=== PATIENT | male | born 1970 | race Caucasian/White ===

== ENCOUNTER 2024-04-30 07:05 | Day surgery (SDC) | payer OTHER ==
[~2024-04-30] VITALS: Ht 175.3 cm; Wt 97.3 kg
[~2024-04-30 07:05] MED LIST: ALEV220T22 PO; BUSP5TA PO; FLUO40CA PO; NS 250 ML IV ONE
[2024-04-30] MEDS ORDERED: LIDOCAINE 2% 100MG/5ML SDV (FOR ANES.) As Ordered ONE (08:09)
[2024-04-30] MEDS ORDERED: propofoL 200 MG/20 ML VIAL As Ordered ONE (08:09)
[2024-04-30 08:48] VITALS: TEMP 97.4
[2024-04-30 09:00] VITALS: BP 137/56; O2SAT 100
== END 2024-04-30 09:05 | disposition home or self-care (01) ==
LOC: M OPP 07:05
PROVIDERS: ATTEND Surgery
DX: Z12.11 Encounter for screening for malignant neoplasm of colon (principal); Z12.12 Encounter for screening for malignant neoplasm of rectum; K64.0 First degree hemorrhoids; Z90.89 Acquired absence of other organs; F41.9 Anxiety disorder, unspecified; F32.9 Major depressive disorder, single episode, unspecified; Z79.899 Other long term (current) drug therapy